=== PATIENT | female | born 1985 | race Two or more races ===

== ENCOUNTER 2016-06-05 23:44 | Emergency (ER) | payer MEDICAID ==
[~2016-06-05] VITALS: Ht 152.4 cm; Wt 83.9 kg
--- NOTE | 2016-06-06 00:14 | Emergency Room Report ---
History of Present Illness General Chief Complaint: General Complaint Source: Patient Present Illness HPI Is a 30-year-old female with no past medical history. She presents with chief complaint of a left middle finger pain. Onset tonight. Also noted that she was very sweaty to both hands. Denies any chest pain. She also has some neck pain. She had neck pain for last month with pain going down the arms. Initially on the right down the left also. Denies any trauma. Denies any fever chills denies any palpitation. No exertional component. Better now. Pain is sharp in nature. Allergies: Coded Allergies: No Known Allergies (Unverified , 06/05/16) Patient History Past Medical History: none Past Surgical History: none Pertinent Family History: none Social History: Denies: smoking Last Menstrual Period: 2ND WEEK OF apr Now: No Immunizations: other Reviewed Nursing Documentation: PMH: Agreed, PSxH: Agreed Nursing Documentation-PM Past Medical History: No Stated History Review of Systems Eye: Denies: blurred vision, eye pain ENT: Denies: ear pain, nose congestion, throat swelling Respiratory: Denies: cough, shortness of breath Cardiovascular: Denies: chest pain, palpitations Gastrointestinal: Denies: abdominal pain, diarrhea, nausea, vomiting Musculoskeletal: Denies: back pain, joint pain Skin: Denies: rash Neurological: Denies: headache, numbness Endocrine: Denies: increased thirst, increased urine Hematologic/Lymphatic: Denies: easy bruising All Other Systems: negative except mentioned in HPI Physical Exam Vital Signs Date Time Temp Pulse Resp B/P Pulse Ox O2 Delivery O2 Flow Rate FiO2 06/05/16 23:56 98.2 92 16 144/92 98 Room Air vitals unremarkable [id number] EP Interpretation: reviewed, normal General Appearance: well appearing, no apparent distress, alert Head: normocephalic, atraumatic Eyes: bilateral eye EOMI, bilateral eye PERRL ENT: hearing grossly normal, normal pharynx Neck: full range of motion, supple, no meningismus Respiratory: chest non-tender, lungs clear, normal breath sounds Cardiovascular #1: regular rate, rhythm, no murmur Gastrointestinal: normal bowel sounds, non tender, no mass, no organomegaly, no bruit, non-distended Musculoskeletal: back normal, gait/station normal, normal range of motion Psychiatric: mood/affect normal Skin: warm/dry Medical Decision Making Diagnostic Impression: Primary Impression: Neuropathy ER Course Patient presents with numbness and tingling is to her hand. Be a neuropathy from a neck. CT scan unremarkable. No evidence of focal deficit. No evidence of ACS, TIA or CVA. Doubt multiple sclerosis and workup so far unremarkable. We'll discharge home with reassurance. EKG Diagnostic Results Rate: normal Rhythm: NSR ST Segments: no acute changes Rhythm Strip Diag. Results EP Interpretation: yes Rate: 85 Rhythm: NSR, no PVC's, no ectopy CT/MRI/US Diagnostic Results CT/MRI/US Diagnostic Results : Imaging Test Ordered: CT cervical spine Impression negative per radiologist Last Vital Signs Date Time Temp Pulse Resp B/P Pulse Ox O2 Delivery O2 Flow Rate FiO2 06/05/16 23:56 98.2 92 16 144/92 98 Room Air Status: improved Disposition: HOME, SELF-CARE Condition: Stable Scripts Meloxicam* (MOBIC*) 15 Mg Tablet 15 MG ORAL DAILY, #30 TAB 0 Refills Prov: KELI JIMENES M.D. 06/06/16 Additional Instructions: Followup with your DrStacy in 7 days. If not better may be referred to see a neurologist. Return if symptom worsen. KELI JIMENES M.D. Jun 06, 2016 00:14
[2016-06-06 00:23] LABS: APPEARANCE,URINE CLEAR; KETONES,URINE NEGATIVE (NEGATIVE); LEUKOCYTE ESTERASE ,URINE 1+ (NEGATIVE); NITRITE,URINE NEGATIVE (NEGATIVE); PH,URINE 5 (4.5-8.0); PROTEIN,URINE NEGATIVE (NEGATIVE); UROBILINOGEN,URINE NORMAL MG/DL (0.0-1.0)
[2016-06-06 00:32] LABS: SQUAMOUS EPITHELIAL CELL,UR MODERATE /LPF (NONE/OCC)
[2016-06-06 00:33] LABS: BACTERIA,URINE FEW /HPF
[2016-06-06] MEDS ORDERED: MOBIC15 MG ORAL (01:23)
[2016-06-06 01:24] VITALS: BP 120/67
[2016-06-06 01:30] VITALS: BP 120/67
--- NOTE | 2016-06-06 13:54 | Diagnostic Imaging Report ---
Indication: Neck pain. Technique: Continuous helical imaging of the cervical spine was obtained transaxially from the skull base to the upper thoracic spine. 2-D coronal and sagittal reformatted images were obtained. Total Dose length Product (DLP): [address] Dose Index Volume (CTDIvol): 21 mGy Comparison: None Findings: There is no evidence of an acute fracture or malalignment. Atlantoaxial alignment appears normal. Height and configuration of the vertebral bodies and intervertebral discs are within normal limits. Uncovertebral joints and facets are unremarkable. There is no soft tissue swelling. Impression: Negative cervical spine CT The CT scanner at [facility] is accredited by the [employer] and the scans are performed using protocols designed to limit radiation exposure to as low as reasonably achievable to attain images of sufficient resolution adequate for diagnostic evaluation.
--- NOTE | 2016-06-09 14:03 | Cardiology Report ---
APPROVED REPORT EKG Measurement Heart [id number] Unusual P axis, possible ectopic atrial rhythm Abnormal ECG
== END 2016-06-06 01:30 | disposition home or self-care (01) ==
LOC: EMR 23:59
DX: G62.9 Polyneuropathy, unspecified (principal); M79.645 Pain in left finger(s); M54.2 Cervicalgia
CPT/HCPCS: 72125; 81003; 81025; 93005; 99283